=== PATIENT | male | born 1985 | race Caucasian/White ===

== ENCOUNTER 2016-10-30 16:10 | Emergency (ER) | payer MEDICAID ==
[2016-10-30 16:23] VITALS: BP 134/78
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
== END 2016-10-30 19:20 ==
LOC: JD.ED 16:10
DX: R44.0 Auditory hallucinations (principal); R45.851 Suicidal ideations; F17.210 Nicotine dependence, cigarettes, uncomplicated; F32.9 Major depressive disorder, single episode, unspecified
CPT/HCPCS: 36415; 80053; 81001; 84443; 85025; 99285; G0478; G0480; 80306; 99284

== ENCOUNTER 2016-11-28 15:25 | Emergency (ER) | payer MEDICAID ==
--- NOTE | 2016-11-28 15:39 | EDM.PDOC ---
ED HPI Behavioral Health - General Chief Complaint: Behavioral/Psych Stated Complaint: LAW ENFORCEMENT Time Seen by Provider: 11/28/16 15:28 Source of Information: Reports: Patient, Police, Other ([facility] [place]) Exam Limitations: Reports: No limitations - History of Present Illness INITIAL COMMENTS - FREE TEXT/NARRATIVE: The patient presents with hallucinations. He is hearing voices and they are saying they want to kill him. He has a history of suicide attempts. He drank bleach twice. He has been admitted to the [facility] 3 times since August and he has been evaluated by [facility] and the plan is to send him to [place] again. He does admit to using meth on Sunday along with marijuana. He denies fever, chills, cough, chest pain, abdominal pain, nausea or vomiting. He has no other health problems. He says he did take his medications. Onset of Symptoms: Reports: gradual Duration of Symptoms: Reports: Day(s): Severity: severe Associated Symptoms: Reports: hallucinations, auditory - Related Data Allergies Allergy/AdvReac Type Severity Reaction Status Date / Time No Known Allergies Allergy Verified 11/28/16 15:33 Home Medications: Home Meds ARIPiprazole [Abilify] 5 mg PO DAILY 11/28/16 [History] Escitalopram [Lexapro] 10 mg PO DAILY 11/28/16 [History] Colp-3/DHA/Epa/Fish Oil [Colp 3 500 Softgel] 1,000 mg PO BID 11/28/16 [History ] QUEtiapine [SEROquel] 200 mg PO BEDTIME 11/28/16 [History] Topiramate [Topamax] 50 mg PO BID 11/28/16 [History] Past Medical History - Past Health History Medical/Surgical History: Denies Medical/Surgical History Psychiatric History: Reports: Addiction, Depression, Psychosis, Suicide attempt Social & Family History - Family History Family Medical History: Unobtainable - Tobacco Use Smoking Status *Q: Current Every Day Smoker Years of Tobacco use: 2 Packs/Tins Daily: 1 Used Tobacco, but Quit: No Second Hand Smoke Exposure: Yes - Caffeine Use Caffeine Use: Reports: Coffee - Alcohol Use Days Per Week of Alcohol Use: 7 Number of Drinks Per Day: 6 Total Drinks Per Week: 42 - Recreational Drug Use Recreational Drug Use: No Drug Use in Last 12 Months: Yes Recreational Drug Type: Reports: Methamphetamine Recreational Drug Use Frequency: Binges Recreational Drug Last Use: Jun 2016 (if to be believed) - Living Situation & Occupation Living situation: Reports: single, with family Occupation: employed ([employer], but may have been fired) ED ROS GENERAL - Review of Systems Review Of Systems: See Below Constitutional: Reports: no symptoms HEENT: Reports: No symptoms Respiratory: Reports: No Symptoms Cardiovascular: Reports: No symptoms Endocrine: Reports: no symptoms GI/Abdominal: Reports: No symptoms : Reports: no symptoms Musculoskeletal: Reports: no symptoms Skin: Reports: no symptoms Neurological: Reports: No Symptoms Psychiatric: Reports: Hallucinations ED EXAM, BEHAVIORAL HEALTH - Physical Exam Exam: See Below Exam Limited By: No limitations General Appearance: alert, no apparent distress Ears: normal external exam Nose: normal inspection Head: atraumatic, normocephalic Neck: normal inspection Respiratory/Chest: no respiratory distress, lungs clear, normal breath sounds Cardiovascular: regular rate, rhythm, no edema, no murmur GI/Abdominal: soft, non tender, no organomegaly, no mass Back Exam: normal inspection Extremities: normal inspection COURSE, BEHAVIORAL HEALTH COMP - Course Vital Signs: Last Vital Signs Temp 98.6 F 11/28/16 15:32 Pulse 109 H 11/28/16 15:32 Resp 18 11/28/16 15:32 BP 151/78 H 11/28/16 15:32 Pulse Ox 95 11/28/16 15:32 Orders, Labs, Meds: Active Orders 24 hr Category Date Time Status Cardiac Monitoring [RC] . DIRECTED Care 11/28/16 15:30 Active Laboratory Tests 11/28/16 11/28/16 11/28/16 Range/Units 15:35 15:40 15:40 WBC 10.51 H (4.23-9.07) K/mm3 RBC 6.23 H (4.63-6.08) M/mm3 Hgb 17.9 H (13.7-17.5) gm/L Hct 50.4 (40.1-51.0) % MCV 80.9 (79.0-92.2) fl MCH 28.7 (25.7-32.2) pg MCHC 35.5 (32.2-35.5) g/dl RDW Std Deviation 41.3 (35.1-43.9) fL Plt Count 268 (163-337) K/mm3 MPV 9.6 (9.4-12.3) fl Neut % (Auto) 75.3 H (34.0-67.9) % Lymph % (Auto) 17.9 L (21.8-53.1) % [place] % (Auto) 5.1 L (5.3-12.2) % Eos % (Auto) 1.0 (0.8-7.0) Baso % (Auto) 0.4 (0.1-1.2) % Neut # (Auto) 7.92 H (1.78-5.38) K/mm3 Lymph # (Auto) 1.88 (1.32-3.57) K/mm3 [place] # (Auto) 0.54 (0.30-0.82) K/mm3 Eos # (Auto) 0.10 (0.04-0.54) K/mm3 Baso # (Auto) 0.04 (0.01-0.08) K/mm3 Manual Slide Review Normal smear Sodium 136 (136-145) mEq/L Potassium 3.7 (3.5-5.1) mEq/L Chloride 100 (98-107) mEq/L Carbon Dioxide 23 (21-32) mEq/L Anion Gap 16.7 H (5-15) BUN 7 (7-18) mg/dL Creatinine 1.4 H (0.7-1.3) mg/dL Est Cr Clr Drug Dosing TNP Estimated GFR (MDRD) 60 (>60) mL/min BUN/Creatinine Ratio 5.0 L (14-18) Glucose 125 H (74-106) mg/dL Calcium 9.6 (8.5-10.1) mg/dL Total Bilirubin 0.8 (0.2-1.0) mg/dL AST 17 (15-37) U/L ALT 43 (16-63) U/L Alkaline Phosphatase 114 (46-116) U/L Total Protein 8.5 H (6.4-8.2) g/dl Albumin 4.7 (3.4-5.0) g/dl Globulin 3.8 gm/dL Albumin/Globulin Ratio 1.2 (1-2) TSH 3rd Generation 1.489 (0.358-3.74) uIU/mL Urine Opiates Screen Negative (NEGATIVE) Ur Buprenorphine Scrn Negative (NEGATIVE) Ur Oxycodone Screen Negative (NEGATIVE) Urine Methadone Screen Negative (NEGATIVE) Ur Propoxyphene Screen Negative (NEGATIVE) Ur Barbiturates Screen Negative (NEGATIVE) Ur Tricyclics Screen Presumptive positive H (NEGATIVE) Ur Phencyclidine Scrn Negative (NEGATIVE) Ur Amphetamine Screen Presumptive positive H (NEGATIVE) U Methamphetamines Scrn Presumptive positive H (NEGATIVE) U Benzodiazepines Scrn Negative (NEGATIVE) U Cocaine Metab Screen Negative (NEGATIVE) U Marijuana (THC) Screen Negative (NEGATIVE) Ethyl Alcohol 0.00 (0.00) gm% Re-Assessment/Re-Exam: I have ordered a CBC, CMP, TSH, urine drug screen and ETOH. His WBC was a little elevated at 10.51. His Hgb was a little elevated at 17.9. His creatinine is slightly elevated at 1.4. His UDS was positive for tyrcyclics, amphetamines and meth. His ETOH was negative. I called the [facility] in [place] and talked with Dr Kim and he accepted the patient. He will be going by [facility]. Departure - Departure Time of Disposition: 16:50 Disposition: DC/Tfer to Psych Hosp/Unit 65 Condition: serious Clinical Impression: Auditory hallucinations, Methamphetamine abuse Forms: ED Department Discharge - My Orders Last 24 Hours: My Active Orders 11/28/16 15:30 Cardiac Monitoring [RC] . DIRECTED - Assessment/Plan Last 24 Hours: My Active Orders 11/28/16 15:30 Cardiac Monitoring [RC] . DIRECTED
[2016-11-28 17:38] VITALS: BP 115/70
== END 2016-11-28 17:25 ==
LOC: JD.ED 15:25
DX: F15.10 Other stimulant abuse, uncomplicated (principal); F17.210 Nicotine dependence, cigarettes, uncomplicated; F32.9 Major depressive disorder, single episode, unspecified; Z79.899 Other long term (current) drug therapy
CPT/HCPCS: 36415; 80053; 80306; 84443; 85025; 99284; G0480; 99285